=== PATIENT | female | born 1965 | race Caucasian/White ===

== ENCOUNTER 2016-05-27 06:10 | Observation (INO) | payer OTHER ==
[~2016-05-27] VITALS: Ht 162.6 cm; Wt 144.0 kg
[~2016-05-27 06:10] MED LIST: ADULT LOW DOSE81 M1 PO; ADVAIR 250/501 DISK IH; ADVAIR 500-501 EACH IH; ADVAIR HFA PO; ADVAIR HFA120 INHALA IH; ADVIL200 MG PO; ASPIRIN E.C.81 M1 PO; ASPIRIN81 M2 PO; Advair 250/50 Diskus IH; Aspirin E.C. PO; Avelox PO; CIPRO500 MG PO; Diflucan PO; FIORICET,ESG1 TABLET PO; LAN-O-SOOTHE56 GM TP; LOPRESSOR12.5 MG PO; LOPRESSOR25 MG PO; Lopressor PO; MACROBID100 MG PO; METOPROLOL TART25 MG PO; MOTRIN600 MG PO; MOTRIN800 MG PO; PROAIR HFA8.5 GM IH; PROVENTIL,2.5 MG/3 M IH; ROXICODONE5 MG PO; TAMIFLU75 MG PO; VENTOLIN HFA18 GM IH; Vicodin,Norco 5/325 PO; ZITHROMAX250 MG PO; ZOFRAN4 MG PO
[2016-05-27 06:48] LABS: HEMATOCRIT 40.1 % (36.0-46.0); MCH 27.5 PG (29.0-34.0); MCHC 31.9 G/DL (30.0-36.0); MCV 86.2 FL (83-99); MEAN PLAT.VOLUME 9.6 uM^3 (9.5-12.4); PLATELET COUNT 335 K/uL (156-360); RBC DIS.WIDTH-CV 14.1 % (11.8-14.6); RED BLOOD COUNT 4.65 M/uL (3.80-5.20); WHITE BLOOD COUNT 12.3 K/uL (4.1-10.2)
[2016-05-27 07:13] LABS: ANION GAP 14 MEQ/L (2-14); CHLORIDE 105 MEQ/L (99-109); POTASSIUM 4.4 MEQ/L (3.7-5.4); SAMPLE HEMOLYSIS CHECK 0; SAMPLE ICTERIC CHECK 0; SAMPLE LIPEMIA CHECK 0; SODIUM 139 MEQ/L (136-147)
[2016-05-27 07:19] LABS: GFR ESTIMATE (CALCULATED) > 59 mL/min/; GLUCOSE 183 mg/dL (70-99); UREA NITROGEN (BUN) 15 mg/dL (9-23)
[2016-05-27 07:22] LABS: TROP-I INTERPRETATION NEGATIVE
[2016-05-27 07:35] LABS: PROTHROMBIN TIME 9.9 (9.2-11.2)
[2016-05-27] MEDS ORDERED: ZESTRIL20 MG PO (12:10)
[2016-05-27] MEDS ORDERED: GLUCOPHAGE500 MG PO (12:10)
[2016-05-27] MEDS ORDERED: DULERA 100 MCG/13 GM IH (12:16)
[2016-05-27] MEDS ORDERED: ADIPEX-P37.5 M1 PO (12:17)
[2016-05-27 13:39] LABS: TROP-I INTERPRETATION NEGATIVE; TROPONIN-I 0.07 ng/mL (0.0-0.30)
[2016-05-27 15:57] VITALS: BP 142/73
[2016-05-27 16:00] VITALS: BP 142/73
[2016-05-27 19:03] VITALS: BP 145/66
[2016-05-27 19:55] LABS: TROP-I INTERPRETATION NEGATIVE; TROPONIN-I 0.05 ng/mL (0.0-0.30)
[2016-05-27 23:08] VITALS: BP 143/70
[2016-05-28 03:00] VITALS: BP 149/67
[2016-05-28 07:14] LABS: ALKALINE PHOSPHATASE 78 IU/L (3-129); ANION GAP 10 MEQ/L (2-14); CHLORIDE 106 MEQ/L (99-109); GFR ESTIMATE (CALCULATED) > 59 mL/min/; GLUCOSE 129 mg/dL (70-99); POTASSIUM 4.5 MEQ/L (3.7-5.4); SAMPLE HEMOLYSIS CHECK 0; SAMPLE ICTERIC CHECK 0; SAMPLE LIPEMIA CHECK 0; SODIUM 138 MEQ/L (136-147); TOTAL BILIRUBIN 0.3 MG/DL (0.0-1.0); UREA NITROGEN (BUN) 15 mg/dL (9-23)
[2016-05-28 07:37] VITALS: BP 142/78
[2016-05-28 09:03] LABS: HEMATOCRIT 35.4 % (36.0-46.0); MCH 27.7 PG (29.0-34.0); MCHC 31.4 G/DL (30.0-36.0); MCV 88.3 FL (83-99); RBC DIS.WIDTH-CV 13.9 % (11.8-14.6); RED BLOOD COUNT 4.01 M/uL (3.80-5.20)
[2016-05-28 09:28] LABS: WHITE BLOOD COUNT 8.2 K/uL (4.1-10.2)
[2016-05-28 09:32] LABS: MEAN PLAT.VOLUME 10.1 uM^3 (9.5-12.4)
[2016-05-28 09:35] LABS: PLATELET COUNT 222 K/uL (156-360)
[2016-05-28 11:50] VITALS: BP 139/73
[2016-05-28] MEDS ORDERED: LOPRESSOR25 MG PO (11:58)
== END 2016-05-28 13:00 | disposition home or self-care (01) ==
LOC: EME 06:10 → 4EAST 08:38 → EDOF 08:38 → 4EAST 15:39
PROVIDERS: Emergency Medicine; Hospitalist; Physician Assistant
DX: I47.1 Supraventricular tachycardia (principal); R07.89 Other chest pain; J45.20 Mild intermittent asthma, uncomplicated; D72.829 Elevated white blood cell count, unspecified; G43.909 Migraine, unspecified, not intractable, without status migrainosus; E66.01 Morbid (severe) obesity due to excess calories; Z68.43 Body mass index [BMI] 50.0-59.9, adult; Z87.891 Personal history of nicotine dependence
CPT/HCPCS: 71010; 80048; 80053; 81003; 84484; 85027; 85610; 93005; 94640 76; 94760; 99202; 99281; 99285; G0378; J1644

== ENCOUNTER 2016-09-01 10:22 | Emergency (ER) | payer OTHER ==
[~2016-09-01 10:22] MED LIST changes: +ADIPEX-P37.5 M1 PO; +DULERA 100 MCG/13 GM IH; +GLUCOPHAGE500 MG PO; +ZESTRIL20 MG PO
[2016-09-01] MEDS ORDERED: NAPROSYN500 MG PO (11:03)
[2016-09-01] MEDS ORDERED: VALIUM2 MG PO (11:03)
[2016-09-01 11:44] VITALS: BP 161/93
== END 2016-09-01 11:55 | disposition home or self-care (01) ==
LOC: EME 10:22
DX: M43.6 Torticollis (principal); M62.838 Other muscle spasm
CPT/HCPCS: 99281; 99283; J1885

== ENCOUNTER 2016-11-29 09:19 | Emergency (ER) | payer OTHER ==
[~2016-11-29] VITALS: Ht 162.6 cm; Wt 148.2 kg
[~2016-11-29 09:19] MED LIST changes: +NAPROSYN500 MG PO; +VALIUM2 MG PO
[2016-11-29 09:54] LABS: EOSINOPHIL (%) 2.3 % (0-5); EOSINOPHIL COUNT 0.2 K/uL (0-0.3); HEMATOCRIT 36.4 % (36.0-46.0); IMMATURE GRANULOCYTE (%) 0.7 % (0.0-0.7); IMMATURE GRANULOCYTE COUNT 0.1 K/uL; INSTRUMENT ABS NEUTROPHIL CT 6.7 K/uL; LYMPHOCYTE COUNT 1.8 K/uL (1.0-2.8); MCHC 32.4 G/DL (30.0-36.0); MCV 86.3 FL (83-99); MEAN PLAT.VOLUME 9.4 uM^3 (9.5-12.4); MONOCYTE (%) 4.3 % (3-12); MONOCYTE COUNT 0.4 K/uL (0-0.8); NEUTROPHIL COUNT 6.7 K/uL (1.8-6.4); PLATELET COUNT 248 K/uL (156-360); RBC DIS.WIDTH-CV 14.1 % (11.8-14.6); RBC DIS.WIDTH-SD 43.8 % (39-53); RED BLOOD COUNT 4.22 M/uL (3.80-5.20); WHITE BLOOD COUNT 9.1 K/uL (4.1-10.2)
[2016-11-29 10:05] LABS: CHLORIDE 106 mEq/L (99-109); POTASSIUM 4.2 mEq/L (3.7-5.4); SODIUM 138 mEq/L (136-147)
[2016-11-29 10:06] LABS: GLUCOSE 148 mg/dL (70-99)
[2016-11-29 10:08] LABS: ANION GAP 11 MEQ/L (2-14)
[2016-11-29 10:10] LABS: GFR ESTIMATE (CALCULATED) > 59 mL/min/
[2016-11-29 10:11] LABS: UREA NITROGEN (BUN) 11 mg/dL (9-23)
[2016-11-29 10:15] LABS: TROP-I INTERPRETATION NEGATIVE; TROPONIN-I < 0.01 ng/mL (0.0-0.30)
[2016-11-29 13:29] LABS: TROP-I INTERPRETATION NEGATIVE; TROPONIN-I < 0.01 ng/mL (0.0-0.30)
[2016-11-29] MEDS ORDERED: MOTRIN800 MG PO (13:49)
[2016-11-29 14:22] VITALS: BP 132/68
== END 2016-11-29 14:23 | disposition home or self-care (01) ==
LOC: EME 09:19
PROVIDERS: Emergency Medicine
DX: R07.89 Other chest pain (principal); R05 Cough; J45.909 Unspecified asthma, uncomplicated; E11.9 Type 2 diabetes mellitus without complications; Z79.84 Long term (current) use of oral hypoglycemic drugs; Z90.49 Acquired absence of other specified parts of digestive tract; Z90.710 Acquired absence of both cervix and uterus; Z79.82 Long term (current) use of aspirin; Z87.891 Personal history of nicotine dependence
CPT/HCPCS: 71010; 80048; 83880; 84484; 85025; 93005; 99281; 99285; J2270